=== PATIENT | female | born 1990 | race African-American/Black ===

== ENCOUNTER 2017-10-25 15:31 | Inpatient (IN) ==
[2017-10-25] MEDS ORDERED: ONDANSETRON 4 MG/2 ML VIAL IV PRN (16:02)
[2017-10-25] MEDS ORDERED: DINOPROSTONE 10 MG VAG.INSERT VAG ONE (16:02)
[2017-10-25] MEDS ORDERED: MEPERIDINE 50 MG/1 ML VIAL IV PRN (16:02)
[2017-10-25] MEDS ORDERED: BUTORPHANOL 2 MG/ML VIAL IV PRN (16:02)
[2017-10-25 16:23] LABS: Basophils % 0.2 % (0.0-0.8); Eosinophils # 0.2 10*3/uL (0.0-0.87); Eosinophils % 1.3 % (0.00-10.9); Hemoglobin 11.1 GM/DL (12.0-16.0); Immature Granulocytes % 0.3 %; Immature Granulocytes Absolute 0.05 #; Lymphocytes # 2.6 10*3/uL (1.4-4.0); Lymphocytes % 17.9 % (21.3-54.2); Mean Corpuscular HGB Conc 30.8 GM/DL (32-36); Mean Corpuscular Hemoglobin 24 PG (27-34); Mean Corpuscular Volume 78.9 FL (87-102); Mean Platelet Volume 10.2 FL (9.6-12.0); Monocytes # 1.5 10*3/uL (0.11-0.8); Monocytes % 10.1 % (1.7-12.7); Neutrophils # 10.1 10*3/uL (1.4-7.4); Neutrophils % 70.2 % (38.7-73.9); Platelet Count 325 T/CUMM (130-400); Red Blood Count 4.56 MC/CUMM (3.8-5.5); Red Cell Distribution Width 15.2 % (9.3-17.3); White Blood Count 14.4 T/CUMM (4-12)
[2017-10-25] MEDS ORDERED: ALUMINUM/MAGNES/SIMETH MAX STR 30 ML UDCUP PO PRN (22:59)
[2017-10-25] MEDS ORDERED: FAMOTIDINE 20 MG TABLET PO PRN (23:55)
[2017-10-26] MEDS: LACTATED RINGERS 1,000 ML IV SCH ×2 (04:30→07:05)
[2017-10-26] MEDS ORDERED: OXYTOCIN/LR 20 UNIT/1,000 ML BAG IV SCH (06:00)
[2017-10-26] MEDS ORDERED: PROMETHAZINE 25 MG/1 ML VIAL IM PRN (06:28)
[2017-10-26] MEDS ORDERED: fentaNYL 2 MCG/ROPIV 0.2% EPID 150 ML EPIDURAL PRN (06:28)
[2017-10-26] MEDS ORDERED: hydrOXYzine HCL 25 MG/1 ML VIAL IM PRN (06:28)
[2017-10-26] MEDS ORDERED: ePHEDrine 50 MG/ML AMP IV PRN (06:28)
[2017-10-26] MEDS ORDERED: diphenhydrAMINE 50 MG/1 ML VIAL IV PRN ×2 (06:28)
[2017-10-26] MEDS ORDERED: CITRIC ACID/SODIUM CITRATE 30 ML UDCUP PO PRN (06:29)
[2017-10-26] MEDS ORDERED: FAMOTIDINE 20 MG/2 ML VIAL IV PRN (06:29)
[2017-10-26] MEDS ORDERED: miSOPROStol 200 MCG TABLET ONE (09:16)
[2017-10-26] MEDS ORDERED: LIDOCAINE 1% 50 ML VIAL ONE (09:17)
[2017-10-26] MEDS ORDERED: WITCH HAZEL PADS 100/JAR TOP PRN (11:39)
[2017-10-26] MEDS ORDERED: MEASLES/MUMPS/RUBELLA VACCINE 0.5 ML VIAL SUBCUT ONE (11:39)
[2017-10-26] MEDS ORDERED: LANOLIN 50% CREAM 0.3 OZ TUBE TOP PRN (11:39)
[2017-10-26] MEDS ORDERED: BENZOCAINE 20%/MENTHOL 0.5% SPRAY 56 GM CAN TOP PRN (11:39)
[2017-10-26] MEDS ORDERED: DIPH/TET/ACEL PERT BOOSTER VACCINE 0.5 ML VIAL IM ONE (11:39)
[2017-10-26] MEDS ORDERED: HYDROCORTISONE 2.5% RECTAL CREAM 30 GM TUBE TOP PRN (11:39)
[2017-10-26] MEDS ORDERED: RHO(D) IMMUNE GLOBULIN 300 MCG SYRINGE IM ONE (11:39)
[2017-10-26] MEDS ORDERED: BISACODYL 10 MG SUPP RECTAL PRN (11:39)
[2017-10-26] MEDS ORDERED: ACETAMINOPHEN 500 MG TABLET PO SCH (12:00)
[2017-10-26] MEDS: IBUPROFEN 800 MG TABLET PO SCH ×2 (12:05→22:31)
[2017-10-26] MEDS: DOCUSATE SODIUM 100 MG CAPSULE PO SCH (20:50)
[2017-10-27 06:56] LABS: Basophils # 0.1 10*3/uL (0.0-0.2); Basophils % 0.3 % (0.0-0.8); Eosinophils # 0.2 10*3/uL (0.0-0.87); Eosinophils % 1.5 % (0.00-10.9); Hematocrit 30.5 VOL% (35.7-47.0); Hemoglobin 9.9 GM/DL (12.0-16.0); Immature Granulocytes % 0.4 %; Immature Granulocytes Absolute 0.07 #; Lymphocytes % 25.2 % (21.3-54.2); Mean Corpuscular HGB Conc 32.5 GM/DL (32-36); Mean Corpuscular Hemoglobin 25 PG (27-34); Mean Corpuscular Volume 76.6 FL (87-102); Mean Platelet Volume 10.6 FL (9.6-12.0); Monocytes # 1.3 10*3/uL (0.11-0.8); Monocytes % 8.4 % (1.7-12.7); Neutrophils # 10.1 10*3/uL (1.4-7.4); Neutrophils % 64.2 % (38.7-73.9); Platelet Count 279 T/CUMM (130-400); Red Blood Count 3.98 MC/CUMM (3.8-5.5); Red Cell Distribution Width 15.2 % (9.3-17.3); White Blood Count 15.7 T/CUMM (4-12)
[2017-10-27] MEDS: DOCUSATE SODIUM 100 MG CAPSULE PO SCH ×2 (08:34→21:33)
[2017-10-27] MEDS: IBUPROFEN 800 MG TABLET PO SCH ×2 (08:34→12:40)
[2017-10-27] MEDS ORDERED: ALUMINUM/MAGNES/SIMETH MAX STR 30 ML UDCUP PO PRN (11:07)
[2017-10-27] MEDS: RANITIDINE 150 MG TABLET PO SCH (12:51)
[2017-10-28] MEDS: IBUPROFEN 800 MG TABLET PO SCH ×2 (00:02→08:26)
[2017-10-28 07:17] VITALS: BP 135/82
[2017-10-28] MEDS: DOCUSATE SODIUM 100 MG CAPSULE PO SCH (08:26)
[2017-10-28] MEDS: RANITIDINE 150 MG TABLET PO SCH (08:26)
== END 2017-10-28 12:35 | disposition home or self-care (01) | DRG 560 ==
LOC: N.LDOUT 15:31 → N.LD 15:33 → N.OB 10-26 16:21
PROVIDERS: ADMIT Obstetrics & Gynecology; ATTEND Obstetrics & Gynecology